=== PATIENT | female | born 1985 | race Caucasian/White ===

== ENCOUNTER 2017-04-16 12:43 | Outpatient (CLI) | payer OTHER ==
--- NOTE | 2017-04-16 16:32 | RAD ---
HYSTEROSALPINGOGRAM: 04/16/17 HISTORY: M97.1 - tubal patency. COMPARISON: None. TECHNIQUE: Patient is brought to the fluoroscopy suite. All questions were answered. A timeout was performed. Informed consent was already obtained. The patient's external and internal genitalia were cleaned and prepped in a normal sterile fashion. Speculum was placed into the vagina. External os appeared normal. The cervix was dilated. A catheter was placed into the cervix. Contrast was instilled retrograde. The endometrial canal is noted. Contour is normal. Both fallopian tubes fill and contrast spills int o the peritoneal cavity bilaterally. IMPRESSION: Patent fallopian tubes bilaterally. DOSE: Fluoro time: 0.7 minutes. 528.8 uGy*m2. POS: [facility]
== END 2017-04-16 12:44 | disposition home or self-care (01) ==
LOC: RAD 12:43
PROVIDERS: ATTEND Obstetrics & Gynecology
DX: N97.1 Female infertility of tubal origin (principal)
CPT/HCPCS: 58340; 74740

== ENCOUNTER 2024-07-06 08:50 | Outpatient (CLI) | payer BC | END 2024-07-06 08:51 | disposition home or self-care (01) | LOC: BICMAMMO 08:50 | PROVIDERS: ATTEND Family Medicine | DX: Z12.31 Encounter for screening mammogram for malignant neoplasm of breast (principal) | CPT/HCPCS: 77063; 77067 ==